=== PATIENT | female | born 1980 | race Caucasian/White ===

== ENCOUNTER 2022-08-04 08:47 | Outpatient (CLI) | payer BC, SELFPAY ==
--- NOTE | ~2022-08-04 | MM_ITS ---
EXAMINATION: MM screening estefani BI w amanda HISTORY: Screening mammogram TECHNIQUE: Craniocaudal and mediolateral oblique 3-D tomosynthesis images were obtained and synthetic 2-D images were generated. CAD analysis was submitted and interpreted. COMPARISON: No prior mammogram is available for comparison at this institution. BREAST PARENCHYMAL COMPOSITION: There are scattered areas of fibroglandular density. FINDINGS: There is no evidence of suspicious mass, calcification, or architectural distortion to sugg est malignancy in either breast. IMPRESSION: 1. No mammographic evidence of malignancy. 2. Recommend routine screening mammography in one year. BI-RADS Category 1: Negative Reviewed, dictated and finalized at location A. TAL SALES MANAGER
== END 2022-08-04 08:48 | disposition home or self-care (01) ==
LOC: ANHIMG 08:53
PROVIDERS: Visit Provider Advanced Practice Midwife
DX: Z12.31 Encounter for screening mammogram for malignant neoplasm of breast (principal)
CPT/HCPCS: 77063; 77067

== ENCOUNTER 2024-09-18 09:50 | Outpatient (CLI) | payer BC, SELFPAY ==
--- NOTE | ~2024-09-18 | MM_ITS ---
EXAMINATION: MM screening estefani BI w amanda HISTORY: Screening TECHNIQUE: Craniocaudal and mediolateral oblique 3-D tomosynthesis images were obtained and synthetic 2-D images were generated. CAD analysis was submitted and interpreted. COMPARISON: 08/04/2022 BREAST PARENCHYMAL COMPOSITION: The breasts are heterogeneously dense, which may obscure small masses . FINDINGS: Stable parenchymal pattern without suspicious microcalcifications, architectural distortion, discrete masses or significant asymmetry. IMPRESSION: 1. No mammographic evidence of malignancy. 2. Recommend routine screening mammography in one year. BI-RADS Category 1: Negative Reviewed, dictated and finalized at location A. IFIED PHYSICAL THERAPIST ASSISTANT
--- OUTSIDE RECORDS SUMMARY | 2024-09-25 18:20 | XMS_ITS | Patient Health Summary ---
Author Organization [facility] Address [address] [place] [address] Care Team Providers Care Track Man Name Role Phone Unavailable Primary Care Provider Unavailabl e Note from [facility],non-owned Affiliates and Associated Physician Practices is amultiple site organization consisting of ambulatory clinics and hospital sitesin [place], [place], [place] and [place]. This disclosure is being madepursuant to the Care Everywhere program and may not contain all information available regarding this patient. Last updated 18.[facility] Immunizations * INFLUENZA VACCINE, QUADR. (FLUZONE; FLULAVAL; FLUARIX; AFLURIA QUADRIVALENT; 6MO+), 0.5 ML (IIV4)(Given 08/19/2021, 07/18/2020, 08/09/2019) Social History Tobacco Use Types Packs/Day Years Used Date Smoking Tobacco: Never Assessed Sex and Gender Information Value Date Recorded Sex Assigned at Not on file Gender Identity Not on file Sexual Orientation Not on file
--- OUTSIDE RECORDS SUMMARY | 2024-09-25 18:20 | XMS_ITS | Data Portability ---
Author Organization [facility] [place] Address [address] [place] [address] Assessment Encounter Date Assessment Date Assessment LastModified by Organization Details LastModified Time 12/23/2021 12/23/2021 Annual gynecological exam performed. Patient will come back in a year unless there are new symptoms. Suggest Calcium with Vitamin D if not eating in diet. Patient advised to get annual flu shot. Recommend yearly physicals and perform monthly breast exams. Genetic testing is available for patients with family history of cancer. Engage in safe sexual practices, use condoms. Encouraged to have daily exercise. Avoid tobacco and illicit drugs, moderation of alcohol. If BMI greater than 25 dietary consult advised. If you have any questions please call or email. mammogram order given for after birth Not available 12/23/2021 15:45:55 08/15/2024 08/15/2024 Annual gynecological exam performed. Patient will come back in a year unless there are new symptoms. Not available 08/15/2024 10:12:43 Plan of Treatment Reminders Order Date Submit Date Provider Last Modified By Organization Details Last Modified Time Details Appointments None recorded. Lab test, urine 2019 020 [email or web address] [facility], [address], [address], [place], [address], 0 13:59:56 CMP, serum or plasma 2023 024 [facility] (Lab), [address], [place], [address], 4 04:03:54 CBC w/ auto diff 2023 024 [facility] (Lab), [address], [place], [address], 4 04:03:54 lipid panel, blood 2023 024 [facility] (Lab), [address], [place], [address], 4 04:03:54 HbA1c (hemoglobi n A1c), blood 2023 024 [facility] (Lab), [address], [place], [address], 4 04:03:55 TSH, serum or plasma 2023 024 [facility] (Lab), [address], [place], [address], 4 04:03:55 25-hydroxy vitamin D2 + 25-hydroxy vitamin D3, QN, serum or plasma 2023 024 [facility] (Lab), [address], [place], [address], 4 04:03:55 Referral None recorded. Procedures None recorded. Surgeries hysterosco py, removal of foreign body (SURG) 2019 020 [facility], [address], [place], [address], 0 17:38:35 hysterosco py, removal of foreign body (SURG) [address], [address], [place], [address], 0 18:16:14 Imaging None recorded. Medication Orders None recorded. Patient TargetsNo targets recorded. Patient Instructions Encounter Date Encounter Id Patient Instructions Last Modified By Organization Details Last Modified Time 05/28/2020 [id number] [email or web address] Not available 12:07:16 Reason for Referral None Reported. Results Created Date Observation Date Name Description Value Unit Range Abnormal Flag Note LastModifiedBy Organization Detail LastModifiedTime 05/28/20 20 05/29/2020 CT + NG DNA, PCR, unspe cifie d speci men trichomonas vaginalis, aptima (panther) NOT DETECT ED normal DNA testi ng perfo rmed by [employer] en[employer] Ampli ficat ion (TMA) These resul ts shoul d be inter prete d in light of all clini allen and labor atory findi ngs. This assay is highl y accur ate, but rare false posit benja and negat benja resul ts may occur . Posit benja resul ts in low preva lence popul ation s may requi re re-ev aluat ion. A negat benja resul t does not precl ude a possi ble infec tion due to a speci men inade quacy or sampl ing error . Test perfo rmed by [facility], d/b/a Ade [facility], [address] [facility] [facility] [address], [place] [address] , Nancy Worthy ra, DO, Labor atory Dire tor. Not Available [facility] ([facility]) [address], [place], [address], 05/30/2020 03:32:25 05/28/2005/29/2020 CT + NG DNA, PCR, unspe cifie d speci men neisseria gonorrhoeae, aptima NOT DETECT ED normal DNA testi ng perfo rmed by [employer] f[employer] ion (TMA) These resul ts shoul d be inter prete d in light of all clini allen and labor atory findi ngs. This assay is highl y accur ate, but rare false posit benja and negat benja resul ts may occur . Posit benja resul ts in low preva lence popul ation s may requi re re-ev aluat ion. A negat benja resul t does not precl ude a possi ble infec tion due to a speci men inade quacy or sampl ing error . Test perfo rmed by [facility], [employer], d/b/a Ade dorado, [address] [facility] [address], [place] [address] , Nancy Worthy ra, DO, Labor atory Direc tor. Not Available [facility] ([facility]) [facility] [address], [place], [address], 05/30/2020 03:32:25 05/28/2005/29/2020 CT + NG DNA, PCR, unspe cifie d speci men chlamydia trachomatis, aptima NOT DETECT ED normal DNA testi ng perfo rmed by [employer] f[employer] (TMA) These resul ts shoul d be inter prete d in light of all clini allen and labor atory findi ngs. This assay is highl y accur ate, but rare false posit benja and negat benja resul ts may occur . Posit benja resul ts in low preva lence popul ation s may requi re re-ev aluat ion. A negat benja resul t does not precl ude a possi ble infec tion due to a speci men inade quacy or sampl ing error . Test perfo rmed by [facility] [employer], [employer], d/b/a Ade dorado, [address] [facility] [address], [place] [address] , Nancy Worthy ra, DO, Labor atory Direc tor. Not Available [facility] ([facility]) [facility] [address], [place], [address], 05/30/2020 03:32:25 05/28/2005/28/2020 pregn frank test, urine HCG negati ve Not Available [facility] [address], [place], [address], 05/28/2020 11:45:30 06/06/20 20 06/06/2020 pregn frank test, urine HCG negati ve Not Available [facility] [address], [place], [address], 06/06/2020 09:09:33 12/24/19 22 12/23/2021 IMAGE GUIDE D PAP AND HPV REGAR DLESS image guided Pap, HPV regardless of Pap result SEE RESULT S BELOW CASE REPOR T: Cytol ogy Gynec ologi allen Repor t Case: [id number] Autho renee amador Provi caitlin: Lauren Haro, DOG DAY CARE ATTENDANT Colle cted: 12/23 1620 Order ing Locat ion: [place] [facility] Recei leland: 12/24 0101 First Scree n: Saira Lane ret, CT Speci men: Scree rachel Pap - Image d, Cervi x STATE MENT OF ADEQU ACY: Satis facto ry for evalu ation Trans forma tion zone compo nent prese nt FINAL DIAGN OSIS: Negat benja for Intra epith elial Lesio n or Natalia russell (NIL) . Elect carol murray kelly d by Saira Lane ret, CT on 022 at 1:25 PM ----- ----- ----- ----- ----- ----- ----- ----- ----- ----- ----- ----- ----- ----- ----- ----- ----- ---- HPV RESUL TS: HPV mRNA E6/E7 : No HPV mRNA Detec enrico NOTE: This high risk HPV mRNA assay detec ts fourt een high- risk HPV types (16, 18, 31, 33, 35, 39, 45, 51, 52, 56, 58, 59, 66, 68) witho ut diffe renti ation . COMME NT: Note: This speci men was revie wed by a Cytot echno logis t and/o r Patho logis t (as indic ated in this repor t) after evalu ation using the Thinp rep Imagi ng Syste m. CLINI ALLEN INFOR MATIO N: Menst rual Statu s: LMP (if appli cable ): Clini allen Histo ry/Pr eviou s Pap: Type of Neopl stephen (if appli cable ): Signi fican t Clini allen Findi ngs: Other Histo ry: Hormo jareth (if appli cable ): PAP EDUCA SOFIA L NOTE: The Pap Test is a scree rachel test with an inher ent false negat benja rate. Liqui d-bas ed sampl ing may decre ase, but will not elimi vicky, false negat benja resul ts. A negat benja resul t does not precl ude the prese nce and/o r devel opmen t of disea se, since the prese nce of abnor mal cells in the sampl e depen ds on the locat ion of the lesio n and sampl ing techn ique. Luis Angel nued regul ar scree rachel is the best metho d of cance r preve ntion . If repor enrico cytol ogic findi ng do not corre late with physi allen and/o r histo rical findi ngs, furth er inves tigat ion is recom roge d, as clini camilo romero nted. Not Available [facility] (Lab) [address] [facility], [place], [address], 12/30/2021 14:27:14 08/15/20 24 08/15/2024 IMAGE GUIDE D PAP AND HPV REGAR DLESS image guided Pap, HPV regardless of Pap result SEE RESULT S BELOW CASE REPOR T: Cytol ogy Gynec ologi allen Repor t Case: [id number] Autho riherminia g Provi caitlin: Amanda Mcmullen, TOMAS Colle cted: 08/15 1048 Order ing Locat ion: [place] [facility] log[facility] Recei leland: 08/16 0911 First Scree n: Angelika [place] ay, CT Speci men: Scree rachel Pap - Image d, Cervi x STATE MENT OF ADEQU ACY: Satis facto ry for evalu ation Trans forma tion zone compo nent prese nt Patricia howard ring blood and infla mmati on prese nt ----- ----- ----- ----- ----- ----- ----- ----- ----- ----- ----- ----- ----- ----- ----- ----- ----- ---- FINAL DIAGN OSIS: Negat benja for Intra epith elial Lesjoey guaman or Natalia russell (NIL) . Elect carol mendoza d by Angelika [place], CT on 2023 at 1:45 PM ----- ----- ----- ----- ----- ----- ----- ----- ----- ----- ----- ----- ----- ----- ----- ----- ----- ---- HPV RESUL TS: HPV mRNA E6/E7 : No HPV mRNA Detec enrico NOTE: This high risk HPV mRNA assay detec ts fourt een high- risk HPV types (16, 18, 31, 33, 35, 39, 45, 51, 52, 56, 58, 59, 66, 68) witho ut diffe renti ation . COMME NT: This speci men was revie wed by a Cytot echno logis t and/o r Patho logis t (as indic ated in this repor t) after evalu ation using the Thinp rep Imagi ng Syste m. CLINI ALLEN INFOR MATIO N: Menst rual Statu s: LMP (if appli cable ): Clini allen Histo ry/Pr eviou s Pap: Type of Neopl stephen (if appli cable ): Signi scott t Clini allen Findi ngs: Other Histo ry: Hormo jareth (if appli cable ): PAP EDUCA SOFIA L NOTE: The Pap Test is a scree rachel test with an inher ent false negat benja rate. Liqui d-bas ed sampl ing may decre ase, but will not elimi vicky, false negat benja resul ts. A negat benja resul t does not precl ude the prese nce and/o r devel opmen t of disea se, since the prese nce of abnor mal cells in the sampl e depen ds on the locat ion of the lesio n and sampl ing techn ique. Luis Angel nued regul ar scree rachel is the best metho d of cance r preve ntion . If repor enrico cytol ogic findi ng do not corre late with physi allen and/o r histo rical findi ngs, furth er inves tigat ion is recom roge d, as clini camilo romero nted. Not Available [facility] (Lab) [address], [place], [address], 08/27/2024 14:49:28 08/04/20 22 08/04/2022 MAMMO , scree rachel, bilat eral No observ ation record ed. [address], [place], [address], 08/05/2022 08:09:20 09/20/20 24 09/18/2024 MAMMO , scree rachel, bilat eral No observ ation record ed. [address], [place], [address], 09/20/2024 17:20:26 Result Notes None recorded. Procedures Surgical History Date Name Laterality Status Provider Name and Address Organization Details Recorded Time 08/04/20 23 Date of Last Mammogram completed Lani Mayberry [facility] 08/15/2024 10:16:42 12/24/19 22 Date of Last Pap Smear completed Mary Pardo [facility] 12/23/2021 15:24:08 06/06/20 20 Hysteroscopy completed Lauren Guerrero CNM [address], [place], [address], [facility] 06/06/2020 09:02:12 06/06/20 20 IUD Insertion completed Lauren Guerrero CNM [address], [place], [address], [facility] 06/06/2020 09:02:16 06/06/20 20 Hysteroscopy completed Mary Pardo [facility] 06/06/2020 08:23:49 09/26/18 82 Unlisted px foot/toes completed Maryjamar Pardo [facility] 01/25/2022 15:37:32 Imaging Results Imaging Date Name Status LastModified by Organiz ation Details LastModified Time 08/04/2022 MAMMO, screening, bilateral completed [address], [place], [address], 08/05/2022 08:09:20 09/18/2024 MAMMO, screening, bilateral completed [address], [place], [address], 09/20/2024 17:20:26 Procedure Notes None recorded. Medical Equipment None Reported. Allergies No known drug allergies Medications Name Sig Start Date Stop Date Status Note LastModified by Organization Details LastModified Time celecoxib 200 mg capsule take 1 the night before and take 2 the morning of procedur e 06/06 completed Not Available Not Available Not Available amoxicill in 500 mg capsule take 1 capsule (500MG) by oral route 3 times every day for 10 days 10/07 completed Prescrib ed Elsewher e: No [facility] odify By: omedical Encount er DateTime : 09/28/19 12 01:41:08 PM Not Available Not Available Not Available Mirena 21 mcg/24 hr (up to 8 years) 52 mg intrauter ine device Take by intraute rine route. 2019 active mirena IUD inserted 0 and removal due 5 Not Available Not Available Not Available valacyclo vir 1 gram tablet 08/15 completed Not Available Not Available Not Available hydrocodo ne 5 mg-acetam inophen 325 mg tablet 06/06 completed Not Available Not Available Not Available ondansetr on HCl 8 mg tablet take 1 tablet 2 hours before procedur e 06/06 completed Not Available Not Available Not Available Diflucan 150 mg tablet take 1 tablet by oral route once 08/03 completed Prescrib ed Elsewher e: No [facility] odify By: patricia Rivas r DateTime : 02/09/20 16 02:00:00 PM Not Available Not Available Not Available Macrobid 100 mg capsule take 1 capsule (100MG) by oral route every 12 hours with food 10/24 completed Prescrib ed Elsewher e: No [facility] By: anjali henry DateTime : 10/15/19 12 08:30:00 AM Not Available Not Available Not Available amoxicill in 875 mg tablet 08/15 completed Not Available Not Available Not Available diazepam 10 mg tablet 06/06 completed Not Available Not Available Not Available Vitamin D2 1,250 mcg (50,000 unit) capsule take 1 capsule by oral route every week 2016 active Prescrib ed Elsewher e: No [facility] odify By: kelly loco DateTime : 07/04/20 17 11:36:41 AM Not Available Not Available Not Available doxycycli ne hyclate 20 mg tablet TAKE 2 TABLETS BY MOUTH EVERY DAY ON AN EMPTY STOMACH 12/23 completed Not Available Not Available Not Available Lotrimin Ultra 1 % topical cream apply by topical route every day to the affected and surround ing areas of skin 06/29 completed Prescrib ed Elsewher e: Yes Loca tion: [facility] odify By: aidan loco DateTime : 08/03/20 16 11:45:00 AM Not Available Not Available Not Available chlorhexi dine gluconate 0.12 % mouthwash 08/15 completed Not Available Not Available Not Available fiber active Not Available Not Availa ble Not Available Triveen-D uo DHA 29 mg-1 mg-400 mg oral pack take 1 by Oral route every day 08/03 completed Prescrib yael [place] e: No Locat ion: [facility] M odify By: patricia vann DateTime : 07/24/20 14 09:00:00 AM Not Available Not Available Not Available Vitals Date Recorded Body height Body mass index (BMI) Body weight Systolic blood pressure Diastolic blood pressure Provider Name and Address Organization Details Last Updated DateTime 12/23/2021 165.1 cm 24.5 kg/m2 33488.15 g 108 mm[Hg] 67 mm[Hg] Mary Pardo [facility] 2 15:20:22 Date Recorded Body height Body mass index (BMI) Body weight Systolic blood pressure Diastolic blood pressure Provider Name and Address Organization Details Last Updated DateTime 05/28/2020 165.1 cm 23.6 kg/m2 49997.12 g 112 mm[Hg] 68 mm[Hg] Emmy Santiago [facility] 0 11:45:00 Date Recorded Body height Body mass index (BMI) Body weight Systolic blood pressure Diastolic blood pressure Provider Name and Address Organization Details Last Updated DateTime 06/06/2020 165.1 cm 23.8 kg/m2 85992.71 g 97 mm[Hg] 62 mm[Hg] Mary Pardo [facility] 0 08:21:44 Date Recorded Body height Body mass index (BMI) Body weight Systolic blood pressure Diastolic blood pressure Provider Name and Address Organization Details Last Updated DateTime 06/18/2020 165.1 cm 23.6 kg/m2 49557.12 g 110 mm[Hg] 69 mm[Hg] Mary Pardo [facility] 0 10:17:45 Date Recorded Body height Body mass index (BMI) Body weight Systolic blood pressure Diastolic blood pressure Provider Name and Address Organization Details Last Updated DateTime 08/15/2024 165.1 cm 24.5 kg/m2 28799.08 g 112 mm[Hg] 76 mm[Hg] Lani Mayberry [facility] 4 10:13:37 Social History Question Answer Notes LastModified by Organizat ion Details LastModified Time Tobacco Smoking Status Never Smoker Mary Pardo [facility], [facility] 12/23/2021 15:20:59 Do You Have An Advance Directive? No [email or web address] Information not available 12/23/2021 What Is Your Level Of Alcohol Consumption? Occasional [id number] Information not available 07/29/2020 Are You Blind Or Do You Have Difficulty Seeing? No [email or web address] Information not available 12/23/2021 What Is Your Level Of Caffeine Consumption? Moderate [email or web address] Information not available 12/23/2021 How Much Tobacco Do You Chew? None Information not available 08/15/2024 In The 14 Days Before Symptom Onset, Have You Had Close Contact With A Laboratory-confir med COVID-19 While That Case Was Ill? No [email or web address] Information not available 12/23/2021 In The 14 Days Before Symptom Onset, Have You Had Close Contact With A Person Who Is Under Investigation For COVID-19 While That Person Was Ill? No Information not available 12/23/2021 Have You Been To An Area Known To Be High Risk For COVID-19? No [email or web address] Information not available 12/23/2021 Are You Deaf Or Do You Have Serious Difficulty Hearing? No [email or web address] Information not available 12/23/2021 What Type Of Diet Are You Following? REGULAR Information not available 08/15/2024 Do You Or Have You Ever Used E-cigarettes Or Vape? Never Used Electronic Cigarettes [email or web address] Information not available 12/23/2021 What Is The Highest Grade Or Level Of School You Have Completed Or The Highest Degree You Have Received? 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 No [email or web address] Information not available 12/23/2021 What Was The Date Of Your Most Recent Tobacco Screening? 06/18/2020 Information not available 12/23/2021 Do You Use Protection During Sex? No [email or web address] Information not available 12/23/2021 Do You Use Your Seat Belt Or Car Seat Routinely? Yes [email or web address] Information not available 12/23/2021 Do You Have Smoke And Carbon Monoxide Detectors In Your Home? Yes [email or web address] Information not available 12/23/2021 Do You Or Have You Ever Used Smokeless Tobacco? Never Used Smokeless Tobacco [email or web address] Information not available 12/23/2021 How Much Tobacco Do You Smoke? No [id number] Information not available 07/29/2020 Do You Feel Stressed (tense, Restless, Nervous, Or Anxious, Or Unable To Sleep At Night)? [id number] [email or web address] Information not available 12/23/2021 Do You Use Any Illicit Or Recreational Drugs? No [email or web address] Information not available 12/23/2021 Do You Use Sunscreen Routinely? Yes [email or web address] Information not available 12/23/2021 Have You Used IV Drugs? No [email or web address] Information not available 12/23/2021 Sex: Unknown Functional Status Question Answer Note LastModified by Organization D etails LastModified Time Are you able to walk? YESWOREST [email or web address] Information not available 12/23/2021 What is your exercise level? Moderate [email or web address] Information not available 12/23/2021 Mental Status None recorded. Family History Relationship Description Onset Age of this Age Resolved Age Notes LastModified by Organization Details LastModified Time Maternal Aunt Diabetes mellitus [email or web address] Not available 06/06 08:46:11 Maternal Aunt Malignant tumor of breast 50 Not available 2023 10:13:46 Maternal Uncle Diabetes mellitus [email or web address] Not available 06/06 08:46:11 Maternal Grandfather Malignant tumor of lung [email or web address] Not available 06/06 08:46:24 Paternal Aunt Mental disorder Not available 06/06 08:47:01 Paternal Uncle Mental disorder [email or web address] Not available 06/06 08:47:01 Paternal Uncle Alcoholism Not available 024 10:13:46 Unspecified Relation Malignant tumor of breast 43 PATERN [place] COUSIN Not available 08/15/2024 10:13:46 Paternal Grandfather Malignant tumor of lung [email or web address] Not available 12/23 16:35:12 Notes:Maternal aunt: Diabete s mellitus Maternal grandfather: Cancer, lung Maternal uncle: Diabetes mellitus Paternal aunt: Psychiatric Disease, Cancer, breast Paternal grandfather: Cancer, lung Paternal uncle: Psychiatric Disease, Alcoholism Medical History Condition Response Allergies (Food, seasonal, environmental ) N Other N Breast Cancer N Drug/Latex Allergies/Reactions N Blood Transfusion N Dermatologic Disorders N Lung Disease N Defects or Inherited Disease N Breast Problem N Gestational Diabetes N Hematologic disorders N Anesthesia Complications N History of STI N Deep Vein Thrombosis N Polycystic ovary syndrome N Anxiety Disorder N Autoimmune disease N Arthritis N Infertility N Polyps N Acid Reflux (GERD) N History of abnormal pap N Cancer N Stroke N Varicosities N Neurologic/Epilepsy N Endometriosis N High Cholesterol N Headaches N Fibromyalgia N Kidney Disease N Heart Problems N Kidney or Bladder Problems N Thyroid Problems N GI Problems N Eating Disorder N Anemia N Art (IVF or FET) N Psychiatric Illness N Ovarian Cancer N Diabetes N Pulmonary (TB, Asthma) N Hepatitis/Liver Disease N No Past Medical History Y Eczema N Urinary Tract Infection N Abuse/Domestic Violence N Asthma N Trauma/Violence N Depression/ depression N Heart Disease N Pre-Eclampsia N Hypertension N Osteoporosis N Thrombophilias N Gynecological History Statement/Question Response Abnormal Pap N Flow Light Date of Last Mammogram 08/04/2023 Date of LMP 08/12/2024 N On BCP's at Conception? N STIs/STDs N Was last menstrual period normal Y HPV Vaccine N Duration of Flow (days) 5 Current Control Method IUD Age at First Child 30 Date of control 06/06/2020 Are cycles usually normal N Frequency of Cycle (Q days) Sexually Active? Y Menses Monthly N Date of DEXA bone scan Age of first menstrual cycle 15 Date of Last Pap Smear 12/23/2021 Sexual Problems? N LMP Approximate N Obstetrics History GPAL:G 4 P 3 0 1 3 Type Value Full Term 3 Spontaneous 1 Living 3 Total 4 Past Encounters Encounter ID Performer Location Encounter Start Date Encounter Closed Date Diagnosis/Indication Diagnosis SNOMED-CT Code Diagnosis ICD10 Code [id number] [facility] [address] [address] 05/28/2020 11:22:19 05/28/2020 12:44:08 test negative 138636691 Z[facility].02 [facility] 868158247 Z30.9 Malpositio n of intrauterine contraceptive device 8866792332 [id number] T83.32XA [id number] Lauren Guerrero [facility] [address],[place] [address] 06/06/2020 08:15:18 06/06/2020 09:07:49 Removal of intrauterine device 68629310 Z30.432 Insertion of intrauterine contraceptive device 41667877 Z30.430 [id number] Lauren Guerrero [facility] [address] [address],[place] [address] 06/18/2020 09:51:21 06/18/2020 11:09:33 Postoperative visit [id number] Lauren Guerrero [facility] [address],[place] [address] 12/23/2021 15:01:24 12/23/2021 15:51:51 Gynecologic examination [id number] Z01.419 [id number] ADALGISA Maya [facility] [address],[place] [address] 08/15/2024 10:06:38 08/15/2024 11:07:05 Gynecologic examination [id number] Z01.419 Adult heal th examination [id number] Z00.00 Health Concerns Section Related Observation LastModified by Organization Detai ls LastModified Time None Recorded Concern Status LastModified by Organization Details LastModified Time None Recorded Advance Directives Directive N: Payers Encounter Date Sequence Insurance Name Policy Number Policy Grimm Covered Member ID Grimm Member ID Guarantor Name 05/28/2020 1 [employer] Kumar A Gabriella [id number] 06/06/2020 1 [place] Kumar A Gabriella [id number] 06/18/2020 1 [place] Kumar A Gabriella [id number] 12/23/2021 1 [place] [id number] Kumar [place] [id number] 08/15/2024 1 [facility]: (PPO) [id number] Kumar [place] [id number] Notes Date Note Type Note Provider Name and Address Organization Details Recorded Time 05/28/2020 text/html Patient presents for IUD removal/reinsertio sheng Begum, [facility] [address], [place], [address], [facility] 05/28/2020 12:10:03 06/06/2020 text/html pt here for hysteroscopy IUD removal and reinsertion, reviewed m o questions Lauren Guerrero CNM [address], [place], [address], [facility] 06/06/2020 09:03:05 06/18/2020 text/html post op hyst iud removal and replacement, no complaints doing well has not checked iud strings Lauren Guerrero CNM [address], [place], [address], [facility] 06/18/2020 10:42:29 12/23/2021 text/html Annual GYNReport ed bypatient.Menstrua l cycle:Normal menses Urinary symptoms:No hematuria; No incontinence Vulva:No genital lesion Vagina:Normal vaginal discharge Breast:No breast pain; No breast lump; No nipple discharge Current Contraception:Sati sfied with current contraception; Intrauterine device (iud) Sexual complaints:No sexual complaints; No pain during intercourse; Normal libido Menopausal Symptoms:No menopausal symptoms; Normal vaginal lubrication Psychological symptoms:No depression; No anxiety; No PMDD Preventive measures:Encourage self breast examination; Encourage regular exercise; Encourage no tobacco useNotes:doing well, lives in [facility] [address] [place], [address], [facility] 12/23/2021 15:46:07 08/15/2024 text/html Annual GYNReport ed bypatient.Menstrua l cycle:Normal menses Urinary symptoms:No hematuria; No incontinence Vulva:No genital lesion Vagina:Normal vaginal discharge Breast:No breast pain; No breast lump; No nipple discharge Current Contraception:Sati sfied with current contraception; Intrauterine device (iud) Sexual complaints:No sexual complaints; No pain during intercourse; Normal libido Menopausal Symptoms:No menopausal symptoms; Normal vaginal lubrication Psychological symptoms:No depression; No anxiety; No PMDD Preventive measures:Encourage self breast examination; Encourage regular exercise; Encourage no tobacco use; Encourage regular mammograms starting age 42Notes:44yo [employer] - Mirena IUD, inserted 06/06/2020no h/o of abnormal papslast pap 11/2021 : nilm, HPV (-)does not have a PCP ADALGISA Maya [address], [place], [address], [facility] 08/15/2024 11:00:10 OBGyn Episode Ob Episode Information Episode Created Date Number of Fetuses Patient Bloodtype Patient rh Status Prepregnancy Weight lbs Domestic Partner Domestic Partner Phone Father Name Manager Landscape Status 06/06/20 1 CLOSED Fetus Data First Name Last Name Admitted to NICU Weight (g) Sex Living Outcome Pediatric Complications Fetus ID Race Codes Race Delivery Type 4110.45 0704 M Full Term 4438 Vaginal Delivery Jose Calculation JOSE Calculation Method Initial Jose Date Initial Exam Date Initial Exam Provider Initial Ultrasound Date Last Menstrual Period Date Ultra Sound Weeks Gestation Conception by IVF Embryo Age at Transfer Date of Transfer 0 Eighteen To Twenty Week Jose Update Ultra Sound Date Fundal Height At Umbil Quickening Date Ultra Sound Latest Weeks Gestation Final Jose Confirmed By Final Jose Confirmed Date Final Jose Date Ultra Sound Latest Days Gestation 0 0 Menstrual History Last Menstrual Date Menses Monthly On Bcp Conception Prior Menses Frequency Hcg Plus Date Menarche Onset Age Delivery Information Delivery Date Delivery Type Labor Anesthesia Weeks Gestation Incision Type Labor Labor Length Hrs Delivered By Post Complications Tubal Sterilization Discharge Date Comments 5 38.5 =GBS Discharge Information Feeding Method Contraceptive Method Maternal HG B and HCT Levels Ob Episode Information Episode Created Date Number of Fetuses Patient Bloodtype Patient rh Status Prepregnancy Weight lbs Domestic Partner Domestic Partner Phone Father Name Manager Landscape Status 06/06/20 20 1 CLOSED Fetus Data First Name Last Name Admitted to NICU Weight (g) Sex Living Outcome Pediatric Complications Fetus ID Race Codes Race Delivery Type 3656.85 8704 F Full Term 4435 Vaginal Delivery Jose Calculation JOSE Calculation Method Initial Jose Date Initial Exam Date Initial Exam Provider Initial Ultrasound Date Last Menstrual Period Date Ultra Sound Weeks Gestation Conception by IVF Embryo Age at Transfer Date of Transfer 0 Eighteen To Twenty Week Jose Update Ultra Sound Date Fundal Height At Umbil Quickening Date Ultra Sound Latest Weeks Gestation Final Jose Confirmed By Final Jose Confirmed Date Final Jose Date Ultra Sound Latest Days Gestation 0 0 Menstrual History Last Menstrual Date Menses Monthly On Bcp Conception Prior Menses Frequency Hcg Plus Date Menarche Onset Age Delivery Information Delivery Date Delivery Type Labor Anesthesia Weeks Gestation Incision Type Labor Labor Length Hrs Delivered By Post Complications Tubal Sterilization Discharge Date Comments 0 39 Discharge Information Feeding Method Contraceptive Method Maternal HG B and HCT Levels Ob Episode Information Episode Created Date Number of Fetuses Patient Bloodtype Patient rh Status Prepregnancy Weight lbs Domestic Partner Domestic Partner Phone Father Name Manager Landscape Status 06/06/20 20 1 CLOSED Fetus Data First Name Last Name Admitted to NICU Weight (g) Sex Living Outcome Pediatric Complications Fetus ID Race Codes Race Delivery Type , Spontane ous [id number] Jose Calculation JOSE Calculation Method Initial Jose Date Initial Exam Date Initial Exam Provider Initial Ultrasound Date Last Menstrual Period Date Ultra Sound Weeks Gestation Conception by IVF Embryo Age at Transfer Date of Transfer 0 Eighteen To Twenty Week Jose Update Ultra Sound Date Fundal Height At Umbil Quickening Date Ultra Sound Latest Weeks Gestation Final Jose Confirmed By Final Jose Confirmed Date Final Jose Date Ultra Sound Latest Days Gestation 0 0 Menstrual History Last Menstrual Date Menses Monthly On Bcp Conception Prior Menses Frequency Hcg Plus Date Menarche Onset Age Delivery Information Delivery Date Delivery Type Labor Anesthesia Weeks Gestation Incision Type Labor Labor Length Hrs Delivered By Post Complications Tubal Sterilization Discharge Date Comments 4 2014 miscarria ge Discharge Information Feeding Method Contraceptive Method Maternal HG B and HCT Levels Ob Episode Information Episode Created Date Number of Fetuses Patient Bloodtype Patient rh Status Prepregnancy Weight lbs Domestic Partner Domestic Partner Phone Father Name Manager Landscape Status 06/06/20 20 1 CLOSED Fetus Data First Name Last Name Admitted to NICU Weight (g) Sex Living Outcome Pediatric Complications Fetus ID Race Codes Race Delivery Type 3175.14 4 F Full Term 4436 Vaginal Delivery Jose Calculation JOSE Calculation Method Initial Jose Date Initial Exam Date Initial Exam Provider Initial Ultrasound Date Last Menstrual Period Date Ultra Sound Weeks Gestation Conception by IVF Embryo Age at Transfer Date of Transfer 0 Eighteen To Twenty Week Jose Update Ultra Sound Date Fundal Height At Umbil Quickening Date Ultra Sound Latest Weeks Gestation Final Jose Confirmed By Final Jose Confirmed Date Final Jose Date Ultra Sound Latest Days Gestation 0 0 Menstrual History Last Menstrual Date Menses Monthly On Bcp Conception Prior Menses Frequency Hcg Plus Date Menarche Onset Age Delivery Information Delivery Date Delivery Type Labor Anesthesia Weeks Gestation Incision Type Labor Labor Length Hrs Delivered By Post Complications Tubal Sterilization Discharge Date Comments 2 39.1 Discharge Information Feeding Method Contraceptive Method Maternal HG B and HCT Levels
--- OUTSIDE RECORDS SUMMARY | 2024-09-25 18:20 | XMS_ITS | Encounter Summary ---
Author Organization [facility] Address [address] [place] [address] Care Team Providers Care Soot Blower Name Role Phone Unavailable Primary Care Provider Unavailabl e Reason for Visit * Reason Comments Imm Inj Encounter Details Date Type Department Care Team (Late st Contact Info) Description 07/18/2020 12:00 PM CDT Office Visit [facility] AT [address] [place] [address] Provider, Paulo Mo Hammond Flu vaccine need (Primary Dx) Social History Tobacco Use Types Packs/Day Years Used Date Smoking Tobacco: Never Assessed Sex and Gender Information Value Date Recorded Sex Assigned at Not on file Gender Identity Not on file Sexual Orientation Not on file COVID-19 Exposure Response Date Recorded In the last month, have you been in contact with someone who was confirmed or suspected to have Coronavirus / COVID-19? No / Unsure 07/18/2020 11:48 AM CDT documented as of this encounter Progress Notes * Shelly Newell - 07/18/2020 11:55 AM CDT Pt requested a flu shot documented in this encounter Plan of Treatment Not on file documented as of this encounter Visit Diagnoses Diagnosis Flu vaccine need- Primary Need for prophylactic vaccination and inoculation against influenza documented in this encounter
--- OUTSIDE RECORDS SUMMARY | 2024-09-25 18:20 | XMS_ITS | Encounter Summary ---
Author Organization [facility] Address [address] [place] [address] Care Team Providers Care Flying Squad Salesperson Name Role Phone Unavailable Primary Care Provider Unavailabl e Encounter Details Date Type Department Care Team (Latest Contact Info) Description 08/17/2021 Travel Social History Tobacco Use Types Packs/Day Years [...] have Coronavirus / COVID-19? No / Unsure 08/17/2021 8:32 AM PROCESSOR INSPECTOR documented as of this encounter Plan of Treatment Not on file documented as of this encounter Visit Diagnoses Not on filedocumented in this encounter
--- OUTSIDE RECORDS SUMMARY | 2024-09-25 18:20 | XMS_ITS | Continuity of Care Document ---
Author Organization [facility] Address [address] [place] [address] Assessment Encounter Date Assessment Date Assessment LastModified by Organization Details LastModified Time 08/15/2024 08/15/2024 Annual gynecological exam performed. Patient will come back in a year unless there are new symptoms. Not available 08/15/2024 10:12:43 Plan of Treatment Reminders Order Date Submit Date Provider Last Modified By Organization Details Last Modified Time Details Appointments None recorded . Lab CMP, serum or plasma 024 08/15/20 [facility] (Lab), [address], [place], [address], 4 04:03:54 CBC w/ auto diff 024 08/15/20 [facility] (Lab), [address] [place], [address], 4 04:03:54 lipid panel, blood 024 08/15/20 [facility] (Lab), [address] , [place], [address], 4 04:03:54 HbA1c (hemoglo bin A1c), blood 024 08/15/20 [facility] (Lab), [address], [place], [address], 4 04:03:55 TSH, serum or plasma 024 08/15/20 [facility] (Lab), [address], [place], [address], 4 04:03:55 25-hydro xyvitami n D2 + 25-hydro xyvitami n D3, QN, serum or plasma 024 08/15/20 24 [facility] (Lab), [address], [place], [address], 4 04:03:55 Referral None recorded . Procedures None recorded . Surgeries None recorded . Imaging None recorded . Medication Orders None recorded . Patient TargetsNo targets recorded. Patient InstructionsNo instructions recorded. Reason for Referral None Reported. Results Created Date Observation Date Name Description Value Unit Range Abnormal Flag Note LastModifiedBy Organization Detail LastModifiedTime 09/20/20 24 09/18/2024 MAMMO , scree rachel, bilat eral No observ ation record ed. [facility] [address], [place], [address], 09/20/2024 17:20:26 Result Notes None recorded. Procedures Surgical History Date Name Laterality Status Provider Name and Address Organization Details Recorded Time 08/04/20 23 Date of Last Mammogram completed Lani Mayberry [facility] 08/15/2024 10:16:42 12/24/19 22 Date of Last Pap Smear completed Mary Pardo [facility] 12/23/2021 15:24:08 06/06/20 20 Hysteroscopy completed Lauren Guerrero CNM [address], [place], [address], [facility] 06/06/2020 09:02:12 06/06/20 20 IUD Insertion completed Lauren Guerrero CNM [address], [place], [address], [facility] 06/06/2020 09:02:16 06/06/20 20 Hysteroscopy completed Mary Pardo [facility] 06/06/2020 08:23:49 09/26/18 82 Unlisted px foot/toes completed Mary Pardo [facility] 01/25/2022 15:37:32 Imaging Results None recorded. Procedure Notes None recorded. Medical Equipment None [...] Prescrib ed Elsewher e: No Locat ion: [facility] odify By: omedical Encount er DateTime : [...] Prescrib ed Elsewher e: No Locat ion: [facility] odify By: [email or web address] Encounte r DateTime : 02/09/20 16 02:00:00 PM Not Available Not Available Not Available Macrobid 100 mg capsule take 1 capsule (100MG) by oral route every 12 hours with food 10/24 completed Prescrib ed Elsewher e: No Locat ion: [facility] odify By: omedical Encount er DateTime : 10/15/19 12 08:30:00 AM Not Available Not Available Not Available amoxicill in 875 mg tablet 08/15 completed Not Available Not Available Not Available diazepam 10 mg tablet 06/06 completed Not Available Not Available Not Available Vitamin D2 1,250 mcg (50,000 unit) capsule take 1 capsule by oral route every week 2016 active Prescrib ed Elsewher e: No Locat ion: [facility] odify By: kelly loco DateTime : 07/04/20 [...] Prescrib ed Elsewher e: Yes Loca tion: [facility] odify By: aidan loco DateTime : 08/03/20 16 11:45:00 AM Not Available Not Available Not Available chlorhexi dine gluconate 0.12 % mouthwash 08/15 completed Not Available Not Available Not Available fiber active Not Available Not Availa ble Not Available Triveen-D uo DHA 29 mg-1 mg-400 mg oral pack take 1 by Oral route every day 08/03 completed Prescrib ed Elsewher e: No Locat ion: [facility] odify By: patricia vann DateTime : 07/24/20 14 09:00:00 AM Not Available Not Available Not Available Vitals Date Recorded Body height Body mass index (BMI) Body weight Systolic blood pressure Diastolic blood pressure Provider Name and Address Organization Details Last Updated DateTime 08/15/2024 165.1 cm 24.5 kg/m2 27773.08 g 112 mm[Hg] 76 mm[Hg] Lani Mayberry [facility] 4 10:13:37 Social History Question Answer Notes LastModified by Organizat ion Details LastModified Time Tobacco Smoking Status Never Smoker Mary navarrete, [facility] 12/23/2021 15:20:59 Do You Have An Advance Directive? No [email or web address] Information not available 12/23/2021 What Is Your Level Of Alcohol Consumption? Occasional [id number] Information not available 07/29/2020 Are You Blind Or Do You Have Difficulty Seeing? No Information not available 12/23/2021 What Is Your Level Of Caffeine Consumption? Moderate [email or web address] Information not available 12/23/2021 How Much Tobacco Do You Chew? None Information not available 08/15/2024 In The 14 Days Before Symptom Onset, Have You Had Close Contact With A Laboratory-confir med COVID-19 While That Case Was Ill? No [email or web address] Information not available 12/23/2021 In The 14 Days Before Symptom Onset, Have You Had Close Contact With A Person Who Is Under Investigation For COVID-19 While That Person Was Ill? No [email or web address] Information not available 12/23/2021 Have You Been To An Area Known To Be High Risk For COVID-19? No [email or web address] Information not available 12/23/2021 Are You Deaf Or Do You Have Serious Difficulty Hearing? No [email or web address] Information not available 12/23/2021 What Type Of Diet Are You Following? REGULAR Information not available 08/15/2024 Do You Or Have You Ever Used E-cigarettes Or Vape? Never Used Electronic Cigarettes [email or web address] Information not available 12/23/2021 What Is The Highest Grade Or Level Of School You Have Completed Or The Highest Degree You Have Received? 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 No Information not available 12/23/2021 What Was The Date Of Your Most Recent Tobacco Screening? 06/18/2020 [email or web address] Information not available 12/23/2021 Do You Use Protection During Sex? No [email or web address] Information not available 12/23/2021 Do You Use Your Seat Belt Or Car Seat Routinely? Yes Information not available 12/23/2021 Do You Have Smoke And Carbon Monoxide Detectors In Your Home? Yes [email or web address] Information not available 12/23/2021 Do You Or Have You Ever Used Smokeless Tobacco? Never Used Smokeless Tobacco [email or web address] Information not available 12/23/2021 How Much Tobacco Do You Smoke? No [id number] Information not available 07/29/2020 Do You Feel Stressed (tense, Restless, Nervous, Or Anxious, Or Unable To Sleep At Night)? [id number] [email or web address] Information not available 12/23/2021 Do You Use Any Illicit Or Recreational Drugs? No [email or web address] Information not available 12/23/2021 Do You Use Sunscreen Routinely? Yes [email or web address] Information not available 12/23/2021 Have You Used IV Drugs? No [email or web address] Information not available 12/23/2021 Sex: Unknown Functional Status Question Answer Note LastModified by Organization D etails LastModified Time Are you able to walk? YESWOREST Information not available 12/23/2021 What is your exercise level? Moderate [email or web address] Information not available 12/23/2021 Mental Status None recorded. Family History Relationship Description Onset Age of this Age Resolved Age Notes LastModified by Organization Details LastModified Time Maternal Aunt Diabetes mellitus [email or web address] Not available 06/06 08:46:11 Maternal Aunt Malignant tumor of breast 50 Not available 2023 10:13:46 Maternal Uncle Diabetes mellitus [email or web address] Not available 06/06 08:46:11 Maternal Grandfather Malignant tumor of lung [email or web address] Not available 06/06 08:46:24 Paternal Aunt Mental disorder [email or web address] Not available 06/06 08:47:01 Paternal Uncle Mental disorder [email or web address] Not available 06/06 08:47:01 Paternal Uncle Alcoholism Not available 024 10:13:46 Unspecified Relation Malignant tumor of breast 43 PAT[employer] [place] COUSIN Not available 08/15/2024 10:13:46 Paternal Grandfather Malignant tumor of lung [email or web address] Not available 12/23 16:35:12 Notes:Maternal aunt: Diabete s mellitus Maternal grandfather: Cancer, lung Maternal uncle: Diabetes mellitus Paternal aunt: Psychiatric Disease, Cancer, breast Paternal grandfather: Cancer, lung Paternal uncle: Psychiatric Disease, Alcoholism Medical History Condition Response Allergies (Food, seasonal, environmental ) N Other N Drug/Latex Allergies/Reactions N Breast Cancer N Blood Transfusion N Lung Disease N Dermatologic Disorders N Defects or Inherited Disease N Breast Problem N Gestational Diabetes N Hematologic disorders N Anesthesia Complications N History of STI N Deep Vein Thrombosis N Polycystic ovary syndrome N Anxiety Disorder N Autoimmune disease N Arthritis N Polyps N Infertility N History of abnormal pap N Acid Reflux (GERD) N Cancer N Varicosities N Stroke N Neurologic/Epilepsy N Endometriosis N High Cholesterol N Headaches N Fibromyalgia N Kidney Disease N Heart Problems N Thyroid Problems N Kidney or Bladder Problems N GI Problems N Eating Disorder [...] Diagnosis/Indication Diagnosis SNOMED-CT Code Diagnosis ICD10 Code [id number] ADALGISA Maya [facility] [address] [address] 08/15/2024 10:06:38 08/15/2024 11:07:05 Gynecologic examination 52941735 Z01.419 Adult heal th examination 510783107 Z00.00 Health Concerns Section Related Observation LastModified by Organization Detai ls LastModified Time None Recorded Concern Status LastModified by Organization Details LastModified Time None Recorded Payers Encounter Date Sequence Insurance Name Policy Number Policy Grimm Covered Member ID Grimm Member ID Guarantor Name 08/15/2024 1 [employer]: ([place] [id number] Kumar Quiroz [id number] Notes Date Note Type Note Provider Name and Address Organization Details Recorded Time 08/15/2024 text/html Annual GYNReport ed bypatient.Menstrua l [...] a PCP ADALGISA Maya [address], [place], [address], [place] [facility] 08/15/2024 11:00:10 OBGyn Episode No OBEpisode recorded.
--- OUTSIDE RECORDS SUMMARY | 2024-09-25 18:20 | XMS_ITS | Encounter Summary ---
Author Organization [facility] Address [address] [place] [address] Care Team Providers Care National Sales Director Name Role Phone Unavailable Primary Care Provider Unavailabl e Reason for Visit * Reason Onset Date Comments Imm Inj 08/19/2021 Encounter Details Date Type Department Care Team (Late st Contact Info) Description 08/19/2021 2:00 PM DIDACTIC INSTRUCTOR Office Visit [facility] AT [address] [place] [address] Provider, Maryam Chepe [place] Need for prophylactic vaccination and inoculation against influenza (Primary Dx) Social History Tobacco Use Types [...] COVID-19? No / Unsure 08/17/2021 8:32 AM DIDACTIC INSTRUCTOR documented as of this encounter Progress Notes * Tere Guevara APRN-CNP - 08/19/2021 2:09 PM CST Flu screening checklist was reviewed with the patient. VIS was offered prior to administration. Injection site aseptically cleansed and injection given per Immunization(s) protocol. See Imm/Injections activity for details. CTIC INSTRUCTOR documented in this encounter Plan of Treatment Not on file documented as of this encounter Visit Diagnoses Diagnosis Need for prophylactic vaccination and inoculation against influenza- Primary documented in this encounter
--- OUTSIDE RECORDS SUMMARY | 2024-09-25 18:20 | XMS_ITS | Clinical Summary ---
Author Organization [facility] Address [address] [place] [address] Care Team Providers Care Electronic Publisher Name Role Phone Unavailable Primary Care Provider Unavailabl e Source Comments [facility],non-owned Affiliates and Associated Physician Practices is amultiple site organization consisting of ambulatory clinics and hospital sitesin [place], [place], [place] and [place]. This disclosure is being madepursuant to the Care Everywhere program and may not contain all information available regarding this patient. Last updated 18.[facility] Immunizations Name Administration Dates Next Due INFLUENZA VACCINE, QUADR. (F LUZONE; FLULAVAL; FLUARIX; AFLURIA QUADRIVALENT; 6MO+), 0.5 ML (IIV4) 08/19/2021,07/18/2020,08/09/2019 Social History Tobacco Use Types Packs/Day Years Used Date Smoking Tobacco: Never Assessed Sex and Gender Information Value Date Recorded Sex Assigned at Not on file Gender Identity Not on file Sexual Orientation Not on file Plan of Treatment Health Maintenance Due Date Last Done Comments LIPID TESTING 1982 MAMMOGRAM 1982 PAP SMEAR 1982 HIV SCREENING 1997 HEPATITIS C SCREENING 04/25/2000 DTAP/TDAP/TD VACCINES (1 - Tdap) 2001 HEPATITIS B VACCINE (1 of 3 - 19+ 3-dose series) 2001 DEPRESSION SCREENING 09/26/2023 COVID-19 VACCINE (1 - 2023- season) 2024 INFLUENZA VACCINE (#1) 2024 , 07/18/2020, 08/09/2019, Additional history exists ZOSTER VACCINE (1 of 2) 2032 HIB VACCINE Aged Out No longer eligi ble based on patient's age to complete this topic HPV VACCINE Aged Out No longer eligi ble based on patient's age to complete this topic MENINGOCOCCAL VACCINE Aged Out No johnathon israel eligible based on patient's age to complete this topic PNEUMOCOCCAL VACCINE Aged Out No long er eligible based on patient's age to complete this topic
--- OUTSIDE RECORDS SUMMARY | 2024-09-25 18:20 | XMS_ITS | Referral Summary ---
Author Organization [facility] Address [address] [place] [address] Care Team Providers Care Construction Administrative Assistant Name Role Phone Unavailable Primary Care Provider Unavailabl e Source Comments [facility],non-owned Affiliates and Associated Physician Practices is amultiple site organization consisting of ambulatory clinics and hospital sitesin [place], [place], [place] and [place]. This disclosure is being madepursuant to the Care Everywhere program and may not contain all information available regarding this patient. Last updated 18.[facility] Immunizations Name Administration Dates Next Due INFLUENZA VACCINE, QUADR. (F LUZONE; FLULAVAL; FLUARIX; AFLURIA QUADRIVALENT; 6MO+), 0.5 ML (IIV4) 08/19/2021,07/18/2020,08/09/2019 Social History Tobacco Use Types Packs/Day Years Used Date Smoking Tobacco: Never Assessed Sex and Gender Information Value Date Recorded Sex Assigned at Not on file Gender Identity Not on file Sexual Orientation Not on file Plan of Treatment Not on file
--- OUTSIDE RECORDS SUMMARY | 2024-09-25 18:20 | XMS_ITS | Encounter Summary ---
Author Organization [facility] Address [address] [place] [address] Care Team Providers Care Dispensary Technician Name Role Phone Unavailable Primary Care Provider Unavailabl e Encounter Details Date Type Department Care Team (Latest Contact Info) Description 07/18/2020 Travel Social History Tobacco Use Types Packs/Day [...] AM CDT documented as of this encounter Plan of Treatment Not on file documented as of this encounter Visit Diagnoses Not on filedocumented in this encounter
--- OUTSIDE RECORDS SUMMARY | 2024-09-25 18:21 | XMS_ITS | Encounter Summary ---
Author Organization [facility] Address [address] [place] [address] Care Team Providers Care Advanced Seal Delivery System Name Role Phone Unavailable Primary Care Provider Unavailabl e Prior Encounters Date Type Department Care Team Description 10/15/2019 Converted CPS Chart Documents [facility] [address] [place] [address] <No scans attached> 10/15/2019 Converted 13x Documents [facility] [address] [place] [address] <No scans attached> Plan of Treatment Not on file Procedures Procedure Name Priority Date/Time Associated Diagnosis Comments TOPICAL APPLICATION OF FLUORIDE VARNISH Routine 01/17/2019 12:00 AM PDT PROPHYLAXIS - ADULT Routine 01/17/2019 1 2:00 AM PDT PERIODIC ORAL EVALUATION - ESTABLISHED PATIENT Routine 01/17/2019 12:00 AM PDT BITEWINGS - FOUR RADIOGRAPHIC IMAGES Routine 01/16/2019 12:00 AM PDT ADDITIONAL X-RAY Routine 01/16/2019 12:0 0 AM PDT ADDITIONAL X-RAY Routine 01/16/2019 12:0 0 AM PDT ADDITIONAL X-RAY Routine 01/16/2019 12:0 0 AM PDT ADDITIONAL X-RAY Routine 01/16/2019 12:0 0 AM PDT ADDITIONAL X-RAY Routine 01/16/2019 12:0 0 AM PDT SINGLE X-RAY Routine 01/16/2019 12:00 AM PDT MISSED APPOINTMENT Routine 09/07/2018 12 :00 AM PST PERIODIC ORAL EVALUATION - ESTABLISHED PATIENT Routine 07/12/2018 12:00 AM PDT ORAL HYGIENE INSTRUCTIONS Routine 2017 12:00 AM PDT TOPICAL APPLICATION OF FLUORIDE VARNISH Routine 07/11/2018 12:00 AM PDT PROPHYLAXIS - ADULT Routine 07/11/2018 1 2:00 AM PDT BITEWINGS - FOUR RADIOGRAPHIC IMAGES Routine 07/11/2018 12:00 AM PDT PROPHYLAXIS - ADULT Routine 01/03/2018 1 2:00 AM PDT COMPREHENSIVE ORAL EVALUATION - NEW OR ESTABLISHED PATIENT Routine 01/03/2018 12:00 AM PDT PANORAMIC RADIOGRAPHIC IMAGE Routine 01/03/2018 12:00 AM PDT INTRAORAL - COMPREHENSIVE SERIES OF RADIOGRAPHIC IMAGES Routine 01/03/2018 12:00 AM PDT INTRAORAL PHOTO Routine 01/03/2018 12:00 AM PDT INTRAORAL PHOTO Routine 01/03/2018 12:00 AM PDT INTRAORAL PHOTO Routine 01/03/2018 12:00 AM PDT INTRAORAL PHOTO Routine 01/03/2018 12:00 AM PDT Visit Diagnoses Not on file
--- OUTSIDE RECORDS SUMMARY | 2024-09-25 18:21 | XMS_ITS | Clinical Summary ---
Author Organization [facility] Address [address] [place] [address] Phone Care Team Providers Care Gravel Inspector Name Role Phone Usha Oconnell MD Unavailable Nickie Saucedo MD Unavailable [phone] Allergies No known active allergies Medications pimecrolimus (ELIDEL) 1 % Cream Apply thin film to affected areas twice daily. 100 g 3 6 Active Levonorgestrel (MIRENA, 52 MG,) 20 MCG/24HR IUD by Intrauterine route. Active ergocalciferol (VITAMIN D) 16449 UNIT Capsule Reported on 10/13/2016 0 6 Active CLODAN 0.05 % Shampoo 6 Active Calcitriol 3 MCG/GM Ointment 6 Active Active Problems No known active problems Immunizations Immunization Administration Dates Next Due PUR FLU 3+ YRS PRES FREE QUAD IM 10/13/2016 TDAP Vaccine 12/25/2013 Family History Relation Name Status Comments Father Alive Mother Alive Social History Tobacco Use Types Packs/Day Years Used Date Smoking Tobacco: Never Smokeless Tobacco: Never Tobacco Cessation:Counseling Given: No Alcohol Use Standard Drinks/Week Comments No 0 (1 standard drink = 0.6 oz pur e alcohol) Comments No Sex and Gender Information Value Date Recorded Sex Assigned at Not on file Legal Sex Female 7:42 PM CDT Gender Identity Not on file Sexual Orientation Not on file Last Filed Vital Signs Vital Sign Reading Time Taken Comments Blood Pressure 104/70 02/14/2017 3:26 PM CDT Pulse 64 02/14/2017 3:26 PM CDT Temperature 36.9 ??C (98.5 ??F) 02/14/2017 3:26 PM CD T Respiratory Rate 16 02/14/2017 3:26 PM CDT Oxygen Saturation 98% 02/14/2017 3:26 PM CDT Inhaled Oxygen Concentration - - Weight 61.6 kg (135 lb 12.8 oz) 02/14/2017 3:26 PM CDT Height 165.1 cm (5' 5 ) 02/14/2017 3:26 PM CDT Body Mass Index 22.6 02/14/2017 3:26 PM CDT Plan of Treatment Health Maintenance Due Date Last Done Comments Hepatitis C Virus (HCV) Screening 1982 Hepatitis B Immunization (1 of 3 - 19+ 3-dose series) 2001 HPV/Cotest 2012 Cervical Cancer Screening (CCS) 05/11/2019 Pap Smear 05/11/2019 05/11/2016, 04/26, 11/14/2013, Additional history exists Discussion re Starting/Frequency of Mammograms 2022 Td Immunization Every 10 Years (Adults With 1 Tdap) 12/26/2023 12/25/2013 Influenza Immunization (#1) 2024 10/13/2016 SARS-COV-2 Immunization (2023- season) 2024 Respiratory Syncytial Virus (RSV) Immunization (Adult) (1 - 1-dose 75+ series) 2057 Meningococcal Immunization (ACWY) Aged Out No longer eligible based on patient's age to complete this topic Pneumococcal Immunization Combined Aged Out No longer eligible based on patient's age to complete this topic Rotavirus Immunization Aged Out No lo nger eligible based on patient's age to complete this topic Procedures Procedure Name Priority Date/Time Associated Diagnosis Comments PATHOLOGY CYTOLOGY SUPERINTENDENT OPERATING Routine 05/11/2016 from Last 3 Months or Most Recently Relevant to Health Maintenance Results * PATHOLOGY CYTOLOGY SUPERINTENDENT OPERATING (05/11/2016) Specimen of unknown material (specimen) Shahnaz Villanueva PAC PATHOLOGY/CYTOLOGY ORDERABL ES Final Result from Last 3 Months or Most Recently Relevant to Health Maintenance Care Teams Gravel Inspector Relationship Specialty Start Date End Date Usha Oconnell MD [address] [place], [place] [id number] Consulting Physician Dermatology 10/13/16 Nickie Saucedo MD [address] [facility] [address] Consulting Physician Family Medicine 10/13/16
--- OUTSIDE RECORDS SUMMARY | 2024-09-25 18:21 | XMS_ITS | Clinical Summary ---
Author Organization [facility] Address [address] [place] [address] Care Team Providers Care Poultry Debeaker Name Role Phone Unavailable Primary Care Provider Unavailabl e Social History Tobacco Use Types Packs/Day Years Used Date Smoking Tobacco: Never Assessed Comments Unknown Sex and Gender Information Value Date Recorded Sex Assigned at Not on file Legal Sex Unknown 10/17/2019 8:12 PM PST Gender Identity Not on file Sexual Orientation Not on file Plan of Treatment Not on file
--- OUTSIDE RECORDS SUMMARY | 2024-09-25 18:21 | XMS_ITS | Encounter Summary ---
Author Organization [facility] Address [address] [place] [address] Care Team Providers Care Court Registry Officer Name Role Phone Unavailable Primary Care Provider Unavailabl e Encounter Details Date Type Department Care Team (Late st Contact Info) Description 10/15/2019 Converted 13x Documents [facility] [address] [place] [address] Social History Tobacco Use Types Packs/Day Years Used Date Smoking Tobacco: Never Assessed Comments Unknown Sex and Gender Information Value Date Recorded Sex Assigned at Not on file Legal Sex Unknown 10/17/2019 8:12 PM PST Gender Identity Not on file Sexual Orientation Not on file documented as of this encounter Plan of Treatment Not on file documented as of this encounter Visit Diagnoses Not on filedocumented in this encounter
--- OUTSIDE RECORDS SUMMARY | 2024-09-25 18:21 | XMS_ITS | Encounter Summary ---
Author Organization [facility] Address [address] [place] [address] Care Team Providers Care Working Second Hand Name Role Phone Unavailable Primary Care Provider Unavailabl e Encounter Details Date Type Department Care Team (Late st Contact Info) Description 10/15/2019 Converted CPS Chart Documents [facility] [address] [place] [address] Social History Tobacco Use Types [...]
--- OUTSIDE RECORDS SUMMARY | 2024-09-25 18:21 | XMS_ITS | Referral Summary ---
Author Organization [facility] Address [address] [place] [address] Care Team Providers Care Color Control Supervisor Name Role Phone Unavailable Primary Care Provider [...]
--- OUTSIDE RECORDS SUMMARY | 2024-09-25 18:21 | XMS_ITS | CCD ---
Author Organization [facility] Address [address] [place] [address] Care Team Providers Care Metallurgical Or Materials Technician Name Role Phone Unavailable Primary Care [...]
--- OUTSIDE RECORDS SUMMARY | 2024-09-25 18:21 | XMS_ITS ---
Author Organization [facility] Address [address] [place] [address] Care Team Providers Care Optometric Technician Name Role Phone Unavailable Unavailable Unavailable Surgery Details Not on file Complications Check Surgery Details section. Procedure Estimated Blood Loss Check Surgery Details section. Procedure Findings Check Surgery Details section. Procedure Specimens Taken Check Surgery Details section.
--- OUTSIDE RECORDS SUMMARY | 2024-09-25 18:21 | XMS_ITS | Encounter Summary ---
Author Organization [facility] Address [address] [place] [address] Care Team Providers Care Supervisor Electronics Processing Name Role Phone Unavailable Primary Care Provider Unavailabl e Reason for Visit * Reason Comments Imm Inj Encounter Details Date Type Department Care Team (Late st Contact Info) Description 08/09/2019 4:40 PM EMERGENCY MEDICAL TECHNICIAN BASIC Office Visit [facility] [address] [place] [address] Provider, Paulo Mo Ames Need for vaccination (Primary Dx) Social History Tobacco Use Types Packs/Day Years Used Date Smoking Tobacco: Never Assessed Sex and Gender Information Value Date Recorded Sex Assigned at Not on file Gender Identity Not on file Sexual Orientation Not on file documented as of this encounter Progress Notes * Rigo Armas APRN-CNP - 08/09/2019 5:11 PM CST Patient tolerated without difficulty. Hemostasis achieved, and sterile band-aid placed. ?? Immunization questionnaire scanned into the medical record. -Advised patient to keep a record of all vaccinations. (may use [facility] MyChart if desired) -May take Tylenol (acetaminophen) as needed for aches/pains per package directions. -If you develop redness, swelling at the injection site; it should resolve on its own within 5-7 days of injection. Use warm compresses as needed to the site. -Return to clinic for an evaluation if needed. -Current [facility] VIS Handout given ?? Follow-up with your No primary care provider on file. as directed. GENCY MEDICAL TECHNICIAN BASIC documented in this encounter Plan of Treatment Not on file documented as of this encounter Visit Diagnoses Diagnosis Need for vaccination- Primary Need for prophylactic vaccination and inoculation against unspecified single disease documented in this encounter
== END 2024-09-18 09:51 | disposition home or self-care (01) ==
LOC: ANHIMG 09:51
PROVIDERS: Visit Provider Nurse Practitioner
DX: Z12.31 Encounter for screening mammogram for malignant neoplasm of breast (principal)
CPT/HCPCS: 77063; 77067